=== PATIENT | female | born 1940 | race Hispanic/Latino ===

== ENCOUNTER 2024-10-31 17:56 | Inpatient (IN) | payer OTHER ==
[2024-10-31] MEDS ORDERED: Phytonadione 10 MG/ML AMP ONE (18:14)
[2024-10-31 18:39] LABS: Bilirubin Negative (Negative); Blood, Urine Negative (Negative); CAUTI Indications for Culture Alt mental st,lethar; Clarity Turbid (Clear); Glucose, Urine (Dipstick) Normal (Negative); Ketone, Urine Negative (Negative); Leukocyte 500 Leu/uL (Negative); Nitrite 2+ (Negative); Protein, Urine (Dipstick) Negative (Neg-Trace); Specific Gravity, Urine 1.011 (1.002-1.036); Squamous Epithelial 0-3 HPF (0-3); Urobilinogen Normal mg/dL (Less than 2); WBC/HPF Greater than 50 HPF (0-3); pH, Urine 5.5 (5.0-9.0)
[2024-10-31 18:47] LABS: Bacteria/HPF 4+ HPF (None Seen)
[2024-10-31 18:49] LABS: Urine Culture Reflex Yes Yes
[2024-10-31 19:04] LABS: #Basophils 0.04 10x3/uL (0.0-0.2); %Basophils 0.4 % (0.0-1.0); %Eosinophils 0.4 % (0.0-10.0); %Monocytes 4.6 % (0.0-10.0); %Neutrophils 81.3 % (42.0-75.0); Hemoglobin 11.3 g/dL (12.0-16.0); Mean Corpuscular HGB CONC 33.2 g/dL (32.0-36.0); Mean Corpuscular Hemoglobin 31.8 pg (27.0-31.0); Mean Corpuscular Volume 95.8 fL (78.0-98.0); Mean Platelet Volume 9.1 fL (7.4-10.4); Platelet Count 282 10x3/uL (130-400); RBC Distribution Width 13.3 % (11.5-14.5); Red Blood Cell (RBC) Count 3.55 mill/uL (4.20-5.40)
[2024-10-31] MEDS ORDERED: Sodium Chloride 0.9% 100 ML ONE (19:11)
[2024-10-31] MEDS ORDERED: cefTRIAXone (ROCEPHIN) 2 GM VIAL ONE (19:11)
[2024-10-31 19:18] LABS: Calc. Creatinine Clearance 0 mL/min (70-130); Estimated GFR 41
[2024-10-31 19:20] LABS: ALT (SGPT) 13 U/L (8-55); AST (SGOT) 20 U/L (5-34); Alkaline Phosphatase 111 U/L (40-110); Anion Gap 16 mmol/L (10-20); BUN (Urea Nitrogen) 40 mg/dL (9.8-20.1); Bilirubin, Total 0.3 mg/dL (0.2-1.2); Calcium 8.7 mg/dL (7.8-10.44); Carbon Dioxide 21 mmol/L (23-31); Chloride 103 mmol/L (98-107); Globulin 3.3 g/dL (2.4-3.5); Glucose 171 mg/dL (83-110); Potassium 3.6 mmol/L (3.5-5.1); Protein, Total 7.3 g/dL (5.8-8.1); Sodium 136 mmol/L (136-145)
[2024-10-31 19:23] LABS: Troponin I 0.024 ng/mL (< 0.028)
[2024-10-31] MEDS ORDERED: niCARdipine 25 MG/10 ML SDV ONE (19:29)
[2024-10-31 19:39] LABS: INR-International Normal Ratio 1.4; Prothrombin Time 16.8 sec (12.0-14.7)
[2024-10-31 19:40] LABS: PTT 28.2 sec (22.9-36.1)
[2024-10-31] MEDS ORDERED: Electrolyte Replacement Protocol 1 EACH IVPB SCH (19:43)
[2024-10-31] MEDS ORDERED: Docusate 100 MG CAP PO PRN (19:43)
[2024-10-31] MEDS: Mannitol 12.5 GM/50 ML SLOW IVP SCH (21:40)
[2024-10-31] MEDS: HUM PROTHROMBIN CPLX(PCC)4FACT 1,000 UNITS, Human Prothrombin Cmp(Kcentra) 500 UNITS in... IV SCH (21:41)
[2024-10-31] MEDS: Famotidine/PF 20 mg/2ml Vial SLOW IVP SCH (21:45)
[2024-10-31] MEDS: Sodium Chloride 0.9% 1,000 ML IV SCH (22:18)
[2024-10-31 23:54] LABS: Lactic Acid 1.96 mmol/L (0.5-2.2)
[2024-11-01] MEDS: Ondansetron PF 4 MG/2 ML Vial IVP PRN (00:58)
[2024-11-01] MEDS: Ondansetron PF 4 MG/2 ML Vial ONE (00:59)
[2024-11-01 04:37] LABS: #Basophils Less than 0.03 10x3/uL (0.0-0.2); #Eosinophils Less than 0.03 10x3/uL (0.0-0.7); %Basophils 0.2 % (0.0-1.0); %Lymphocytes 4.3 % (21.0-51.0); %Monocytes 2.9 % (0.0-10.0); Hematocrit 32.9 % (36.0-47.0); Hemoglobin 11.1 g/dL (12.0-16.0); Mean Corpuscular HGB CONC 33.7 g/dL (32.0-36.0); Mean Corpuscular Hemoglobin 31.6 pg (27.0-31.0); Mean Corpuscular Volume 93.7 fL (78.0-98.0); Mean Platelet Volume 9.1 fL (7.4-10.4); Platelet Count 315 10x3/uL (130-400); RBC Distribution Width 13.6 % (11.5-14.5); Red Blood Cell (RBC) Count 3.51 mill/uL (4.20-5.40)
[2024-11-01 04:47] LABS: Calc. Creatinine Clearance 37 mL/min (70-130); Estimated GFR 46
[2024-11-01 04:48] LABS: Anion Gap 14 mmol/L (10-20); BUN (Urea Nitrogen) 35 mg/dL (9.8-20.1); Calc. Creatinine Clearance 37 mL/min (70-130); Calcium 8.5 mg/dL (7.8-10.44); Carbon Dioxide 23 mmol/L (23-31); Chloride 103 mmol/L (98-107); Estimated GFR 45; Glucose 152 mg/dL (83-110); Potassium 4.2 mmol/L (3.5-5.1); Sodium 136 mmol/L (136-145)
[2024-11-01 04:49] LABS: Anion Gap 13 mmol/L (10-20); BUN (Urea Nitrogen) 36 mg/dL (9.8-20.1); Calcium 8.5 mg/dL (7.8-10.44); Carbon Dioxide 23 mmol/L (23-31); Chloride 103 mmol/L (98-107); Glucose 153 mg/dL (83-110); Potassium 4.2 mmol/L (3.5-5.1); Sodium 135 mmol/L (136-145)
[2024-11-01 04:55] LABS: INR-International Normal Ratio 1.3; Prothrombin Time 16.1 sec (12.0-14.7)
[2024-11-01] MEDS: Mannitol 12.5 GM/50 ML SLOW IVP SCH (05:44)
[2024-11-01] MEDS: Ondansetron PF 4 MG/2 ML Vial IVP SCH (08:39)
[2024-11-01] MEDS: FLU (Fluad Triv) TS24-25 (65UP)/MF59C/PF 45 MCG/0.5 ML Syringe IM ONE (08:40)
[2024-11-01] MEDS: Bisoprolol Fumarate 5 MG TAB PO SCH (09:18)
[2024-11-01] MEDS: niCARdipine 25 MG in Sodium Chloride 0.9% 250 ML 250 ML IVPB PRN (10:31)
[2024-11-01] MEDS: Famotidine/PF 20 mg/2ml Vial SLOW IVP SCH (20:52)
[2024-11-02 04:47] LABS: #Basophils Less than 0.03 10x3/uL (0.0-0.2); #Eosinophils Less than 0.03 10x3/uL (0.0-0.7); %Basophils 0.1 % (0.0-1.0); %Lymphocytes 3.9 % (21.0-51.0); %Monocytes 6.3 % (0.0-10.0); %Neutrophils 89.2 % (42.0-75.0); Hematocrit 30.6 % (36.0-47.0); Mean Corpuscular HGB CONC 32.7 g/dL (32.0-36.0); Mean Corpuscular Hemoglobin 31.5 pg (27.0-31.0); Mean Corpuscular Volume 96.5 fL (78.0-98.0); Mean Platelet Volume 9.6 fL (7.4-10.4); Platelet Count 295 10x3/uL (130-400); RBC Distribution Width 14.1 % (11.5-14.5); Red Blood Cell (RBC) Count 3.17 mill/uL (4.20-5.40)
[2024-11-02 05:01] LABS: INR-International Normal Ratio 1.2; Prothrombin Time 15.3 sec (12.0-14.7)
[2024-11-02 05:02] LABS: Anion Gap 11 mmol/L (10-20); BUN (Urea Nitrogen) 33 mg/dL (9.8-20.1); Calc. Creatinine Clearance 44 mL/min (70-130); Calcium 8.4 mg/dL (7.8-10.44); Carbon Dioxide 24 mmol/L (23-31); Chloride 113 mmol/L (98-107); Estimated GFR 58; Glucose 123 mg/dL (83-110); PTT 27.6 sec (22.9-36.1); Potassium 3.5 mmol/L (3.5-5.1); Sodium 144 mmol/L (136-145)
[2024-11-02] MEDS: Potassium Chloride 20 MEQ TAB PO SCH (08:28)
[2024-11-02] MEDS: cefTRIAXone\\ROCEPHIN 1 GM in Sodium Chloride 0.9% 100 ML IVPB SCH (12:15)
[2024-11-02] MEDS: Acetaminophen 325 MG TAB PO PRN (20:50)
[2024-11-03 03:30] LABS: Hematocrit 30.2 % (36.0-47.0); Hemoglobin 9.7 g/dL (12.0-16.0); Mean Corpuscular HGB CONC 32.1 g/dL (32.0-36.0); Mean Corpuscular Hemoglobin 31.5 pg (27.0-31.0); Mean Corpuscular Volume 98.1 fL (78.0-98.0); Mean Platelet Volume 9.5 fL (7.4-10.4); Platelet Count 280 10x3/uL (130-400); RBC Distribution Width 14.6 % (11.5-14.5); Red Blood Cell (RBC) Count 3.08 mill/uL (4.20-5.40)
[2024-11-03 03:52] LABS: Anion Gap 11 mmol/L (10-20); BUN (Urea Nitrogen) 35 mg/dL (9.8-20.1); Calc. Creatinine Clearance 46 mL/min (70-130); Calcium 8.3 mg/dL (7.8-10.44); Carbon Dioxide 22 mmol/L (23-31); Chloride 118 mmol/L (98-107); Estimated GFR 60; Glucose 141 mg/dL (83-110); Potassium 3.6 mmol/L (3.5-5.1); Sodium 147 mmol/L (136-145)
[2024-11-03] MEDS: hydrALAZINE 20 MG/ML VIAL SLOW IVP PRN (12:32)
[2024-11-03] MEDS: Lisinopril 5 MG TAB PO SCH (21:54)
[2024-11-04 02:52] LABS: Hematocrit 31.1 % (36.0-47.0); Hemoglobin 10.1 g/dL (12.0-16.0); Mean Corpuscular HGB CONC 32.5 g/dL (32.0-36.0); Mean Corpuscular Hemoglobin 31.8 pg (27.0-31.0); Mean Corpuscular Volume 97.8 fL (78.0-98.0); Mean Platelet Volume 9.9 fL (7.4-10.4); Platelet Count 288 10x3/uL (130-400); RBC Distribution Width 14.6 % (11.5-14.5); Red Blood Cell (RBC) Count 3.18 mill/uL (4.20-5.40)
[2024-11-04 03:12] LABS: Anion Gap 11 mmol/L (10-20); BUN (Urea Nitrogen) 33 mg/dL (9.8-20.1); Calc. Creatinine Clearance 47 mL/min (70-130); Calcium 8.7 mg/dL (7.8-10.44); Carbon Dioxide 23 mmol/L (23-31); Chloride 123 mmol/L (98-107); Estimated GFR 60; Glucose 158 mg/dL (83-110); Potassium 3.4 mmol/L (3.5-5.1); Sodium 154 mmol/L (136-145)
[2024-11-04] MEDS: Dextrose 5 %-0.45 % NaCl 1,000 ML IV SCH (04:05)
[2024-11-04] MEDS: Potassium Bicarbonate/Cit Ac 20 MEQ TAB PER TUBE SCH (08:57)
[2024-11-04] MEDS: cefTRIAXone (ROCEPHIN) 1 GM VIAL ONE (12:03)
[2024-11-04] MEDS ORDERED: Labetalol HCl 100 MG/20 ML VIAL SLOW IVP PRN ×2 (14:59→15:00)
[2024-11-04] MEDS: AMPicillin 1 GM in Sodium Chloride 0.9% 100 ML IVPB SCH (15:11)
[2024-11-04] MEDS: Potassium Chloride 40 MEQ in Dextrose 5% in Water 1,000 ML IV SCH ×2 (17:24→17:37)
[2024-11-04] MEDS: Folic Acid 1 MG TAB PO SCH (20:29)
[2024-11-04] MEDS: Multivit, Therapeutic 1 TAB PO SCH (20:29)
[2024-11-04] MEDS: Thiamine HCl 200 MG/2 ML VIAL SLOW IVP SCH (20:30)
[2024-11-04] MEDS ORDERED: Cyanocobalamin (Vitamin B-12) 1,000 MCG TAB PO SCH (21:00)
[2024-11-04] MEDS ORDERED: Thiamine 100 MG TAB PO SCH (21:00)
[2024-11-05 04:10] LABS: #Basophils Less than 0.03 10x3/uL (0.0-0.2); %Basophils 0.2 % (0.0-1.0); %Eosinophils 0.7 % (0.0-10.0); %Lymphocytes 9.3 % (21.0-51.0); %Monocytes 7.8 % (0.0-10.0); %Neutrophils 81.1 % (42.0-75.0); Hematocrit 29.8 % (36.0-47.0); Hemoglobin 9.7 g/dL (12.0-16.0); Mean Corpuscular HGB CONC 32.6 g/dL (32.0-36.0); Mean Corpuscular Hemoglobin 31.8 pg (27.0-31.0); Mean Corpuscular Volume 97.7 fL (78.0-98.0); Mean Platelet Volume 9.8 fL (7.4-10.4); Platelet Count 264 10x3/uL (130-400); RBC Distribution Width 14.7 % (11.5-14.5); Red Blood Cell (RBC) Count 3.05 mill/uL (4.20-5.40)
[2024-11-05 05:12] LABS: Anion Gap 13 mmol/L (10-20); BUN (Urea Nitrogen) 29 mg/dL (9.8-20.1); Calc. Creatinine Clearance 61 mL/min (70-130); Calcium 8.8 mg/dL (7.8-10.44); Carbon Dioxide 25 mmol/L (23-31); Chloride 119 mmol/L (98-107); Estimated GFR 79; Glucose 129 mg/dL (83-110); Magnesium 2.4 mg/dL (1.6-2.6); Phosphorus 2.3 mg/dL (2.3-4.7); Potassium 3.9 mmol/L (3.5-5.1); Sodium 153 mmol/L (136-145)
[2024-11-05] MEDS ORDERED: Labetalol HCl 100 MG/20 ML VIAL SLOW IVP SCH (10:45)
[2024-11-05] MEDS: Potassium Chloride 40 MEQ in Dextrose 5% in Water 1,000 ML IV SCH (13:27)
[2024-11-05] MEDS: Potassium Chloride 10 MEQ in Dextrose 5% in Water 1,000 ML IV SCH (18:03)
[2024-11-05] MEDS ORDERED: Folic Acid 1 MG TAB PO SCH (21:00)
[2024-11-05] MEDS ORDERED: Multivit, Therapeutic 1 TAB PO SCH (21:00)
[2024-11-05] MEDS: Thiamine 100 MG TAB PO SCH (21:23)
[2024-11-05] MEDS: Cyanocobalamin (Vitamin B-12) 1,000 MCG TAB PO SCH (21:24)
[2024-11-06] MEDS: Cholecalciferol 1,000 UNITS (25 MCG) TAB PO SCH (00:56)
[2024-11-06 05:01] VITALS: BMI 29.4
[2024-11-06 18:29] LABS: Anion Gap 13 mmol/L (10-20); BUN (Urea Nitrogen) 25 mg/dL (9.8-20.1); Calc. Creatinine Clearance 62 mL/min (70-130); Calcium 8.3 mg/dL (7.8-10.44); Carbon Dioxide 23 mmol/L (23-31); Chloride 113 mmol/L (98-107); Estimated GFR 80; Glucose 119 mg/dL (83-110); Potassium 3.7 mmol/L (3.5-5.1); Sodium 145 mmol/L (136-145)
[2024-11-07 04:24] LABS: #Basophils Less than 0.03 10x3/uL (0.0-0.2); %Basophils 0.2 % (0.0-1.0); %Eosinophils 2.6 % (0.0-10.0); %Lymphocytes 10.9 % (21.0-51.0); %Monocytes 8.2 % (0.0-10.0); %Neutrophils 77.2 % (42.0-75.0); Hematocrit 30.5 % (36.0-47.0); Hemoglobin 9.8 g/dL (12.0-16.0); Mean Corpuscular HGB CONC 32.1 g/dL (32.0-36.0); Mean Corpuscular Volume 99.7 fL (78.0-98.0); Mean Platelet Volume 9.8 fL (7.4-10.4); Platelet Count 232 10x3/uL (130-400); RBC Distribution Width 14.3 % (11.5-14.5); Red Blood Cell (RBC) Count 3.06 mill/uL (4.20-5.40)
[2024-11-07 05:21] LABS: Anion Gap 11 mmol/L (10-20); BUN (Urea Nitrogen) 23 mg/dL (9.8-20.1); Calc. Creatinine Clearance 59 mL/min (70-130); Calcium 8.2 mg/dL (7.8-10.44); Carbon Dioxide 26 mmol/L (23-31); Chloride 110 mmol/L (98-107); Estimated GFR 75; Glucose 105 mg/dL (83-110); Magnesium 1.9 mg/dL (1.6-2.6); Potassium 3.4 mmol/L (3.5-5.1); Sodium 144 mmol/L (136-145)
[2024-11-07] MEDS ORDERED: Electrolyte Replacement Protocol FS PRN (09:30)
[2024-11-07] MEDS: Magnesium 2 GM/50 ML(in water) 2 GM in Premix 1 BAG IVPB SCH (10:11)
[2024-11-07] MEDS: Potassium Chloride 20 MEQ TAB PO SCH (10:14)
[2024-11-07] MEDS: Lactated Ringer's 1,000 ML IV SCH (10:16)
[2024-11-07] MEDS: Sertraline 100 MG TAB PO SCH (10:16)
[2024-11-07] MEDS: Famotidine 20 MG TAB PO SCH (20:17)
[2024-11-07] MEDS ORDERED: Atorvastatin Calcium 40 MG TAB PO SCH (21:00)
[2024-11-07] MEDS: traMADol HCl 50 MG TAB PO SCH (22:01)
[2024-11-07] MEDS: Lorazepam 2 MG/ML VIAL SLOW IVP SCH (22:40)
[2024-11-08 04:23] LABS: #Basophils Less than 0.03 10x3/uL (0.0-0.2); %Basophils 0.2 % (0.0-1.0); %Eosinophils 3.8 % (0.0-10.0); %Lymphocytes 14.1 % (21.0-51.0); %Monocytes 8.1 % (0.0-10.0); %Neutrophils 72.5 % (42.0-75.0); Hematocrit 28.9 % (36.0-47.0); Hemoglobin 9.4 g/dL (12.0-16.0); Mean Corpuscular HGB CONC 32.5 g/dL (32.0-36.0); Mean Corpuscular Hemoglobin 31.5 pg (27.0-31.0); Mean Platelet Volume 10.4 fL (7.4-10.4); Platelet Count 265 10x3/uL (130-400); RBC Distribution Width 14.1 % (11.5-14.5); Red Blood Cell (RBC) Count 2.98 mill/uL (4.20-5.40)
[2024-11-08 04:41] LABS: Anion Gap 10 mmol/L (10-20); BUN (Urea Nitrogen) 20 mg/dL (9.8-20.1); Calc. Creatinine Clearance 63 mL/min (70-130); Calcium 8.3 mg/dL (7.8-10.44); Carbon Dioxide 25 mmol/L (23-31); Chloride 109 mmol/L (98-107); Estimated GFR 82; Glucose 94 mg/dL (83-110); Phosphorus 3.3 mg/dL (2.3-4.7); Potassium 4.2 mmol/L (3.5-5.1); Sodium 140 mmol/L (136-145)
[2024-11-08] MEDS: Sertraline 100 MG TAB PO SCH (10:26)
[2024-11-08] MEDS: Polyethylene Glycol 3350 17 GM Packet PO SCH (11:03)
[2024-11-08] MEDS ORDERED: Lactated Ringer's 1,000 ML IV SCH (11:05)
[2024-11-08] MEDS: Albumin 25% 25 GM (100 mL) BOT IVPB SCH (13:23)
[2024-11-08] MEDS ORDERED: Ipratropium/Albuterol 3 ML NEB NEB PRN (19:31)
[2024-11-08] MEDS: Senokot S 8.6-50 MG TAB PO SCH (20:41)
[2024-11-08] MEDS: Bisacodyl 10 MG SUPP PR SCH (20:43)
[2024-11-08] MEDS: Lorazepam 2 MG/ML VIAL SLOW IVP SCH (22:50)
[2024-11-09 04:16] LABS: #Basophils Less than 0.03 10x3/uL (0.0-0.2); %Basophils 0.2 % (0.0-1.0); %Eosinophils 2.8 % (0.0-10.0); %Lymphocytes 12.5 % (21.0-51.0); %Monocytes 8.3 % (0.0-10.0); %Neutrophils 75.6 % (42.0-75.0); Hematocrit 27.9 % (36.0-47.0); Mean Corpuscular HGB CONC 32.3 g/dL (32.0-36.0); Mean Corpuscular Volume 99.3 fL (78.0-98.0); Mean Platelet Volume 9.5 fL (7.4-10.4); Platelet Count 256 10x3/uL (130-400); RBC Distribution Width 14.1 % (11.5-14.5); Red Blood Cell (RBC) Count 2.81 mill/uL (4.20-5.40)
[2024-11-09 04:29] LABS: Phosphorus 2.9 mg/dL (2.3-4.7)
[2024-11-09] MEDS: Polyethylene Glycol 3350 17 GM Packet PO SCH (09:49)
[2024-11-09] MEDS: Ipratropium/Albuterol 3 ML NEB NEB SCH ×2 (10:31→18:32)
[2024-11-09] MEDS: Melatonin 3 MG TAB PO PRN (20:07)
[2024-11-09] MEDS ORDERED: QUEtiapine 25 MG TAB PO SCH (22:30)
[2024-11-09] MEDS: Lorazepam 2 MG/ML VIAL SLOW IVP SCH (22:39)
[2024-11-10 04:04] LABS: #Basophils Less than 0.03 10x3/uL (0.0-0.2); %Basophils 0.1 % (0.0-1.0); %Eosinophils 0.5 % (0.0-10.0); %Lymphocytes 5.8 % (21.0-51.0); %Monocytes 8.8 % (0.0-10.0); %Neutrophils 84.2 % (42.0-75.0); Hematocrit 30.4 % (36.0-47.0); Hemoglobin 10.1 g/dL (12.0-16.0); Mean Corpuscular HGB CONC 33.2 g/dL (32.0-36.0); Mean Corpuscular Hemoglobin 31.9 pg (27.0-31.0); Mean Corpuscular Volume 95.9 fL (78.0-98.0); Mean Platelet Volume 9.9 fL (7.4-10.4); Platelet Count 270 10x3/uL (130-400); RBC Distribution Width 14.2 % (11.5-14.5); Red Blood Cell (RBC) Count 3.17 mill/uL (4.20-5.40)
[2024-11-10 09:15] LABS: Chloride 105 mmol/L (98-107); Sodium 136 mmol/L (136-145)
[2024-11-10 09:16] LABS: Calcium 8.4 mg/dL (7.8-10.44); Glucose 104 mg/dL (83-110)
[2024-11-10 09:17] LABS: Anion Gap 16 mmol/L (10-20); Carbon Dioxide 20 mmol/L (23-31)
[2024-11-10 09:20] LABS: BUN (Urea Nitrogen) 16 mg/dL (9.8-20.1); Calc. Creatinine Clearance 72 mL/min (70-130); Estimated GFR 84
[2024-11-10 09:21] LABS: Actual Bicarbonate (HCO3v) 27.3 mEq/L (22-28); Base Excess 4.4 mEq/L (-2.0 to +3.0); Calcium, Ionized (venous) 1.01 mmol/L (1.16-1.32); Chloride (VBG) 100 mmol/L (98-106); Hematocrit-VBG 32 % (36.0-47.0); Hemoglobin (Hb) 10.9 g/dL (11.7-16.1); Potassium (VBG) 3.64 mmol/L (3.70-5.30); Sodium 135 mmol/L (133-146); pH (venous) 7.516 (7.32-7.43)
[2024-11-10 09:34] LABS: INR-International Normal Ratio 1.2; PTT 29.8 sec (22.9-36.1); Prothrombin Time 14.9 sec (12.0-14.7)
[2024-11-10 09:45] LABS: Potassium 4.9 mmol/L (3.5-5.1)
[2024-11-10] MEDS: Furosemide 40 MG (4 mL) VIAL SLOW IVP SCH (13:25)
[2024-11-10] MEDS ORDERED: cefTRIAXone Sodium 1 MG in Syringe 0 ML IVPB SCH (13:30)
[2024-11-10 14:03] LABS: Bacteria/HPF 3+ HPF (None Seen); Bilirubin Negative (Negative); Blood, Urine 1+ (Negative); CAUTI Indications for Culture Alt mental st,lethar; Clarity Clear (Clear); Glucose, Urine (Dipstick) Normal (Negative); Ketone, Urine Negative (Negative); Leukocyte 75 Leu/uL (Negative); Nitrite Negative (Negative); Protein, Urine (Dipstick) 30 mg/dL (Neg-Trace); Specific Gravity, Urine 1.022 (1.002-1.036); Squamous Epithelial 0-3 HPF (0-3)
[2024-11-10 14:10] LABS: Urine Culture Reflex No No
[2024-11-10 15:18] LABS: ALT (SGPT) 23 U/L (8-55); AST (SGOT) 21 U/L (5-34); Albumin 3.2 g/dL (3.4-4.8); Alkaline Phosphatase 77 U/L (40-110); Bilirubin, Direct 0.3 mg/dL (0.1-0.3); Bilirubin, Total 0.8 mg/dL (0.2-1.2); Protein, Total 6.4 g/dL (5.8-8.1)
[2024-11-10] MEDS: cefTRIAXone\\ROCEPHIN 1 GM in Sodium Chloride 0.9% 100 ML IVPB SCH (15:48)
[2024-11-11 04:42] LABS: #Basophils 0.03 10x3/uL (0.0-0.2); #Eosinophils Less than 0.03 10x3/uL (0.0-0.7); %Basophils 0.2 % (0.0-1.0); %Eosinophils 0.1 % (0.0-10.0); %Lymphocytes 3.7 % (21.0-51.0); %Monocytes 7.6 % (0.0-10.0); %Neutrophils 87.6 % (42.0-75.0); Hematocrit 32.5 % (36.0-47.0); Hemoglobin 10.9 g/dL (12.0-16.0); Mean Corpuscular HGB CONC 33.5 g/dL (32.0-36.0); Mean Corpuscular Hemoglobin 31.9 pg (27.0-31.0); Mean Platelet Volume 9.7 fL (7.4-10.4); Platelet Count 298 10x3/uL (130-400); RBC Distribution Width 14.6 % (11.5-14.5); Red Blood Cell (RBC) Count 3.42 mill/uL (4.20-5.40)
[2024-11-11 04:59] LABS: Anion Gap 16 mmol/L (10-20); BUN (Urea Nitrogen) 17 mg/dL (9.8-20.1); Calc. Creatinine Clearance 60 mL/min (70-130); Calcium 8.5 mg/dL (7.8-10.44); Carbon Dioxide 25 mmol/L (23-31); Chloride 99 mmol/L (98-107); Estimated GFR 80; Glucose 114 mg/dL (83-110); Magnesium 1.7 mg/dL (1.6-2.6); Potassium 3.3 mmol/L (3.5-5.1); Sodium 137 mmol/L (136-145)
[2024-11-11] MEDS: Potassium Chloride 20 MEQ in Premix 1 BAG IVPB SCH (07:50)
[2024-11-11] MEDS: Magnesium 2 GM/50 ML(in water) 2 GM in Premix 1 BAG IVPB SCH (07:50)
[2024-11-11] MEDS ORDERED: Potassium Chloride 20 MEQ TAB PO SCH (08:00)
[2024-11-12] MEDS ORDERED: Ipratropium/Albuterol 3 ML NEB ONE (00:29)
[2024-11-12 05:27] LABS: #Basophils Less than 0.03 10x3/uL (0.0-0.2); %Basophils 0.2 % (0.0-1.0); %Eosinophils 0.3 % (0.0-10.0); %Lymphocytes 6.5 % (21.0-51.0); %Monocytes 7.4 % (0.0-10.0); %Neutrophils 85.1 % (42.0-75.0); Hematocrit 32.8 % (36.0-47.0); Hemoglobin 10.8 g/dL (12.0-16.0); Mean Corpuscular HGB CONC 32.9 g/dL (32.0-36.0); Mean Platelet Volume 9.7 fL (7.4-10.4); Platelet Count 302 10x3/uL (130-400); RBC Distribution Width 14.6 % (11.5-14.5); Red Blood Cell (RBC) Count 3.38 mill/uL (4.20-5.40)
[2024-11-12 05:45] LABS: Anion Gap 15 mmol/L (10-20); BUN (Urea Nitrogen) 20 mg/dL (9.8-20.1); Calc. Creatinine Clearance 59 mL/min (70-130); Calcium 8.3 mg/dL (7.8-10.44); Carbon Dioxide 29 mmol/L (23-31); Chloride 98 mmol/L (98-107); Estimated GFR 78; Glucose 118 mg/dL (83-110); Magnesium 2.1 mg/dL (1.6-2.6); Potassium 3.1 mmol/L (3.5-5.1); Sodium 139 mmol/L (136-145)
[2024-11-12] MEDS: Potassium Chloride 20 MEQ TAB PO SCH (08:02)
[2024-11-12] MEDS: Meropenem 1 GM in Sodium Chloride 0.9% 100 ML IVPB SCH ×2 (12:30→17:23)
[2024-11-12] MEDS ORDERED: Meropenem 1 GM in Sodium Chloride 0.9% 100 ML IVPB SCH (14:00)
[2024-11-12] MEDS: Ondansetron PF 4 MG/2 ML Vial IVP PRN (17:33)
[2024-11-13 09:21] LABS: #Basophils 0.03 10x3/uL (0.0-0.2); %Basophils 0.3 % (0.0-1.0); %Eosinophils 0.4 % (0.0-10.0); %Lymphocytes 8.3 % (21.0-51.0); %Monocytes 6.7 % (0.0-10.0); %Neutrophils 83.9 % (42.0-75.0); Hematocrit 35.8 % (36.0-47.0); Hemoglobin 11.7 g/dL (12.0-16.0); Mean Corpuscular HGB CONC 32.7 g/dL (32.0-36.0); Mean Corpuscular Hemoglobin 31.5 pg (27.0-31.0); Mean Corpuscular Volume 96.5 fL (78.0-98.0); Mean Platelet Volume 9.6 fL (7.4-10.4); Platelet Count 353 10x3/uL (130-400); RBC Distribution Width 14.6 % (11.5-14.5); Red Blood Cell (RBC) Count 3.71 mill/uL (4.20-5.40)
[2024-11-13 09:40] LABS: Anion Gap 16 mmol/L (10-20); BUN (Urea Nitrogen) 23 mg/dL (9.8-20.1); Calc. Creatinine Clearance 52 mL/min (70-130); Calcium 8.8 mg/dL (7.8-10.44); Carbon Dioxide 31 mmol/L (23-31); Chloride 98 mmol/L (98-107); Estimated GFR 69; Glucose 108 mg/dL (83-110); Magnesium 2.1 mg/dL (1.6-2.6); Potassium 3.6 mmol/L (3.5-5.1); Sodium 141 mmol/L (136-145)
[2024-11-13 09:41] LABS: ALT (SGPT) 23 U/L (8-55); AST (SGOT) 21 U/L (5-34); Alkaline Phosphatase 77 U/L (40-110); Bilirubin, Direct 0.2 mg/dL (0.1-0.3); Bilirubin, Total 0.6 mg/dL (0.2-1.2); Protein, Total 6.9 g/dL (5.8-8.1)
[2024-11-13 10:02] VITALS: BMI 28.2
[2024-11-13] MEDS: Meropenem 1 GM in Sodium Chloride 0.9% 100 ML IVPB SCH (11:38)
[2024-11-14 05:42] LABS: Anion Gap 14 mmol/L (10-20); BUN (Urea Nitrogen) 27 mg/dL (9.8-20.1); Calc. Creatinine Clearance 57 mL/min (70-130); Calcium 8.8 mg/dL (7.8-10.44); Carbon Dioxide 34 mmol/L (23-31); Chloride 97 mmol/L (98-107); Estimated GFR 76; Glucose 110 mg/dL (83-110); Magnesium 2.1 mg/dL (1.6-2.6); Sodium 142 mmol/L (136-145)
[2024-11-14 05:43] LABS: #Basophils Less than 0.03 10x3/uL (0.0-0.2); %Basophils 0.1 % (0.0-1.0); %Eosinophils 0.5 % (0.0-10.0); %Lymphocytes 9.9 % (21.0-51.0); %Monocytes 10.2 % (0.0-10.0); %Neutrophils 78.8 % (42.0-75.0); Hemoglobin 12.5 g/dL (12.0-16.0); Mean Corpuscular HGB CONC 33.8 g/dL (32.0-36.0); Mean Corpuscular Hemoglobin 32.1 pg (27.0-31.0); Mean Corpuscular Volume 94.9 fL (78.0-98.0); Mean Platelet Volume 9.9 fL (7.4-10.4); Platelet Count 342 10x3/uL (130-400); RBC Distribution Width 14.4 % (11.5-14.5)
[2024-11-14] MEDS ORDERED: Ipratropium/Albuterol 3 ML NEB NEB PRN (08:33)
[2024-11-14] MEDS: Potassium Chloride 20 MEQ TAB PO SCH (11:39)
[2024-11-14 11:50] VITALS: BP 128/67
[2024-11-14 16:21] VITALS: TEMP 98.4
[2024-11-14] MEDS ORDERED: Famotidine/PF 20 mg/2ml Vial SLOW IVP SCH (21:00)
== END 2024-11-14 17:30 | DRG 64 ==
LOC: ERS 17:56 → CCU 19:02 → 2SE 11-03 19:03 → IMCU/EMU 11-10 15:21
PROVIDERS: ADMIT Family Medicine; ATTEND Hospitalist
PROC: XX20X89 Monitoring of Brain Electrical Activity, Computer-aided Detection and Notification, New Technology Group 9 (ICD-10-PCS; principal; 2024-11-10)
DX: I61.4 Nontraumatic intracerebral hemorrhage in cerebellum (principal); A41.81 Sepsis due to Enterococcus; G93.41 Metabolic encephalopathy; I50.31 Acute diastolic (congestive) heart failure; A41.89 Other specified sepsis; G93.6 Cerebral edema; N39.0 Urinary tract infection, site not specified; E87.0 Hyperosmolality and hypernatremia; N17.9 Acute kidney failure, unspecified; E87.20 Acidosis, unspecified; J98.11 Atelectasis; G93.49 Other encephalopathy; I48.0 Paroxysmal atrial fibrillation; I49.5 Sick sinus syndrome; R13.10 Dysphagia, unspecified; F03.90 Unspecified dementia, unspecified severity, without behavioral disturbance, psychotic disturbance, mood disturbance, and anxiety; D64.9 Anemia, unspecified; I35.0 Nonrheumatic aortic (valve) stenosis; F41.9 Anxiety disorder, unspecified; E87.6 Hypokalemia; R79.1 Abnormal coagulation profile; W19.XXXA Unspecified fall, initial encounter; I10 Essential (primary) hypertension; N18.32 Chronic kidney disease, stage 3b; Z90.79 Acquired absence of other genital organ(s); Z95.0 Presence of cardiac pacemaker; Z79.899 Other long term (current) drug therapy; Z79.01 Long term (current) use of anticoagulants; Z95.9 Presence of cardiac and vascular implant and graft, unspecified; Z51.5 Encounter for palliative care
CPT/HCPCS: 36415; 36416; 51702; 70450; 71045; 71250; 72125; 74018; 74177; 74230; 80048; 80076; 81001; 82805; 83605; 83735; 83930; 84100; 85025; 85027; 85610; 85730; 86850; 86900; 86901; 87040; 87077; 87086; 87186; 93005; 93306; 94640; 94760; 95705; 96361; 96365; 96375; J0290; J0360; J0696; J1940; J2060; J2150; J2185; J2405; J3411; J3430; J3475; J3480; J3490; J7030; J7042; J7050; J7070; J7120; J7168; J7620; P9047